=== PATIENT | male | born 1975 | race African-American/Black ===

== ENCOUNTER 2020-11-29 13:17 | Emergency (ER) | payer MEDICAID, OTHER ==
[~2020-11-29] VITALS: Ht 185.4 cm; Wt 114.0 kg
[2020-11-29 13:21] VITALS: BP 141/77
== END 2020-11-29 18:52 | disposition left against medical advice (07) ==
LOC: ER 13:17
DX: Z53.21 Procedure and treatment not carried out due to patient leaving prior to being seen by health care provider (principal)

== ENCOUNTER 2020-12-12 02:49 | Inpatient (IN) | payer MEDICAID, OTHER ==
[~2020-12-12] VITALS: Ht 185.4 cm; Wt 114.8 kg
[2020-12-12] MEDS ORDERED: HYDROCODONE/ACETAMINOPHEN 5/325MG TABLET PO ONE (03:15)
[2020-12-12 03:44] LABS: BASOPHILS % 0.7 % (0.0-2.0); EOSINOPHILS % 2.5 % (0.0-5.0); HEMATOCRIT. 35.6 % (42.0-52.0); HEMOGLOBIN. 11.7 g/dL (14.0-18.0); LYMPHOCYTES % 9.3 % (20.0-50.0); MEAN CORPUSCULAR HEMOGLOBIN 22.6 pg (28.0-32.0); MEAN CORPUSCULAR VOLUME 68.7 fL (80.0-94.0); MEAN PLATELET VOLUME 8.7 fl (7.4-10.4); MONOCYTES % 8.1 % (2.0-8.0); NEUTROPHILS % 79.4 % (40.0-76.0); PLATELET 344 x1000/uL (130-400); RED BLOOD CELL COUNT 5.18 mill/uL (4.7-6.1); RED CELL DISTRIBUTION WIDTH 18.4 % (11.6-14.6)
[2020-12-12 03:48] LABS: CHLORIDE 105 mEq/L (98-107)
[2020-12-12 06:04] LABS: PROTHROMBIN TIME 10.9 sec (9.6-11.0)
[2020-12-12] MEDS ORDERED: VANCOMYCIN 1 G PREMIX 200 ML IV SCH (06:15)
[2020-12-12] MEDS ORDERED: PIPERACILLIN/TAZ 3.375G PREMIX 50 ML IV ONE (06:15)
[2020-12-12] MEDS ORDERED: PIPERACILLIN/TAZOBACTAM 3.375GM/50ML PREMIX IV ONE (06:15)
[2020-12-12 07:00] LABS: PLATELET ESTIMATE NORMAL
[2020-12-12] MEDS ORDERED: DOCUSATE SODIUM 100MG CAPSULE PO PRN (16:00)
[2020-12-12] MEDS ORDERED: LORAZEPAM 0.5MG TABLET PO PRN (16:00)
[2020-12-12] MEDS ORDERED: ONDANSETRON HCL 4MG/2ML INJ IV PRN (16:00)
[2020-12-12] MEDS ORDERED: IPRATROPIUM/ALBUTEROL 0.5-3(2.5)MG/3ML NEB HHN PRN (16:00)
[2020-12-12] MEDS ORDERED: CLONIDINE 0.1MG TABLET PO PRN (16:00)
[2020-12-12] MEDS ORDERED: ACETAMINOPHEN 325MG TABLET PO PRN ×2 (16:00)
[2020-12-12] MEDS ORDERED: PIPERACILLIN/TAZOBACTAM 3.375G in DEXT 5% WATER 50ML IV SCH ×2 (16:30→17:00)
[2020-12-12] MEDS ORDERED: PIPERACILLIN/TAZ 3.375G PREMIX 50 ML IV SCH (16:30)
[2020-12-12] MEDS: ENOXAPARIN 40MG/0.4ML SYR SUBCUT SCH (18:30)
[2020-12-12] MEDS: VANCOMYCIN 1250MG in DEXTROSE 5% WATER 250ML IV SCH (18:52)
[2020-12-13] VITALS (7 sets, daily range): BP systolic 113–148; BP diastolic 57–86
[2020-12-13] MEDS ORDERED: PIPERACILLIN/TAZOBACTAM 3.375G in DEXT 5% WATER 50ML IV SCH
[2020-12-13] MEDS: PIPERACILLIN/TAZOBACTAM 3.375G in DEXT 5% WATER 50ML IV SCH ×4 (00:59→21:09)
[2020-12-13] MEDS ORDERED: FURO20TA4 PO (02:31)
[2020-12-13] MEDS ORDERED: QUET100T34 PO (02:31)
[2020-12-13] MEDS: VANCOMYCIN 1250MG in DEXTROSE 5% WATER 250ML IV SCH ×2 (06:09→18:16)
[2020-12-13 08:04] LABS: CHLORIDE 105 mEq/L (98-107)
[2020-12-13 08:07] LABS: HEMATOCRIT. 35.4 % (42.0-52.0); HEMOGLOBIN. 11.5 g/dL (14.0-18.0); MEAN CORPUSCULAR HEMOGLOBIN 22.2 pg (28.0-32.0); MEAN CORPUSCULAR VOLUME 68.2 fL (80.0-94.0); MEAN PLATELET VOLUME 7.8 fl (7.4-10.4); PLATELET 373 x1000/uL (130-400); RED BLOOD CELL COUNT 5.19 mill/uL (4.7-6.1)
[2020-12-13 13:21] LABS: NUCLEATED RED BLOOD CELLS 1 /100 WBC; PLATELET ESTIMATE NORMAL
[2020-12-13] MEDS ORDERED: [UNRECOGNIZED DRUG - REMARK] XX SCH (17:00)
[2020-12-13] MEDS: ENOXAPARIN 40MG/0.4ML SYR SUBCUT SCH (17:12)
[2020-12-13] MEDS: QUETIAPINE FUMARATE 50MG TABLET PO SCH (17:41)
[2020-12-13] MEDS: HYDROCODONE/ACETAMINOPHEN 5/325MG TABLET PO PRN (17:43)
[2020-12-13] MEDS: IRON SUCROSE COMPLEX 100 MG/5 ML ML IV SCH (21:10)
[2020-12-13 22:34] LABS: *AMPHETAMINES SCREEN URINE PRESUMTIVE POSITIVE (NEGATIVE); CANNABINOID URINE SCREEN NEGATIVE (NEGATIVE); METHADONE URINE SCREEN NEGATIVE (NEGATIVE); OPIATES URINE SCREEN NEGATIVE (NEGATIVE); PHENCYCLIDINE URINE SCREEN NEGATIVE (NEGATIVE)
[2020-12-13 22:35] LABS: *BARBITURATES SCREEN URINE NEGATIVE (NEGATIVE); *BENZODIAZEPINES SCREEN URINE NEGATIVE (NEGATIVE); *COCAINE SCREEN URINE NEGATIVE (NEGATIVE)
[2020-12-14] VITALS: BP 120/70
[2020-12-14 03:29] LABS: HEMATOCRIT. 35.7 % (42.0-52.0); HEMOGLOBIN. 11.6 g/dL (14.0-18.0); MEAN CORPUSCULAR HEMOGLOBIN 22.1 pg (28.0-32.0); MEAN PLATELET VOLUME 7.5 fl (7.4-10.4); PLATELET 377 x1000/uL (130-400); RED BLOOD CELL COUNT 5.25 mill/uL (4.7-6.1); RED CELL DISTRIBUTION WIDTH 18.1 % (11.6-14.6)
[2020-12-14 03:45] LABS: CHLORIDE 108 mEq/L (98-107)
[2020-12-14 04:00] VITALS: BP 126/72
[2020-12-14] MEDS: VANCOMYCIN 1250MG in DEXTROSE 5% WATER 250ML IV SCH (05:13)
[2020-12-14] MEDS: PIPERACILLIN/TAZOBACTAM 3.375G in DEXT 5% WATER 50ML IV SCH ×3 (05:13→21:03)
[2020-12-14 08:00] VITALS: BP 122/67
[2020-12-14] MEDS: QUETIAPINE FUMARATE 50MG TABLET PO SCH ×2 (09:00→09:08)
[2020-12-14 12:00] VITALS: BP 142/67
[2020-12-14] MEDS: VANCOMYCIN 1500MG in DEXTROSE 5% WATER 250ML IV SCH (13:59)
[2020-12-14 16:00] VITALS: BP 115/65
[2020-12-14] MEDS: ENOXAPARIN 40MG/0.4ML SYR SUBCUT SCH (16:51)
[2020-12-14 17:14] LABS: NUCLEATED RED BLOOD CELLS 2 /100 WBC; PLATELET ESTIMATE NORMAL
[2020-12-14] MEDS: HYDROCODONE/ACETAMINOPHEN 5/325MG TABLET PO PRN (18:06)
[2020-12-14 20:00] VITALS: BP 137/83
[2020-12-14] MEDS: IRON SUCROSE COMPLEX 100 MG/5 ML ML IV SCH (20:28)
[2020-12-15] VITALS: BP 126/63
[2020-12-15] MEDS: VANCOMYCIN 1500MG in DEXTROSE 5% WATER 250ML IV SCH ×2 (01:00→13:09)
[2020-12-15 04:00] VITALS: BP 123/54
[2020-12-15] MEDS: PIPERACILLIN/TAZOBACTAM 3.375G in DEXT 5% WATER 50ML IV SCH (05:01)
[2020-12-15] MEDS: QUETIAPINE FUMARATE 50MG TABLET PO SCH (08:16)
[2020-12-15 09:47] LABS: HEMATOCRIT. 40.4 % (42.0-52.0); HEMOGLOBIN. 13.2 g/dL (14.0-18.0); MEAN CORPUSCULAR HEMOGLOBIN 22.5 pg (28.0-32.0); MEAN CORPUSCULAR VOLUME 68.9 fL (80.0-94.0); MEAN PLATELET VOLUME 7.5 fl (7.4-10.4); PLATELET 475 x1000/uL (130-400); RED BLOOD CELL COUNT 5.86 mill/uL (4.7-6.1); RED CELL DISTRIBUTION WIDTH 18.5 % (11.6-14.6)
[2020-12-15 09:51] LABS: CHLORIDE 106 mEq/L (98-107)
[2020-12-15] MEDS ORDERED: UREA227C4 TP (13:51)
[2020-12-15] MEDS ORDERED: QUET100T34 PO (13:51)
[2020-12-15] MEDS ORDERED: FURO20TA4 PO (13:51)
[2020-12-15] MEDS ORDERED: FERR325T6 MT (13:51)
[2020-12-15] MEDS ORDERED: AMOX-424 MT (13:52)
[2020-12-15] MEDS ORDERED: SULF1TAB48 MT (13:52)
[2020-12-15 14:44] VITALS: BP 140/76
[2020-12-15 19:39] LABS: PLATELET ESTIMATE INCREASED
[2020-12-15] MEDS ORDERED: ENOXAPARIN 30MG/0.3ML SYR SUBCUT SCH (21:00)
== END 2020-12-15 16:20 | disposition home or self-care (01) | DRG 720 ==
LOC: ER 02:49 → MICUSO 13:13 → 7EST 22:07
PROVIDERS: ADMIT Internal Medicine; ATTEND Internal Medicine
DX: A41.9 Sepsis, unspecified organism (principal); L03.115 Cellulitis of right lower limb; D50.9 Iron deficiency anemia, unspecified; D72.821 Monocytosis (symptomatic); F15.90 Other stimulant use, unspecified, uncomplicated; I10 Essential (primary) hypertension; L03.116 Cellulitis of left lower limb; L28.0 Lichen simplex chronicus; R40.0 Somnolence; Z59.00 Homelessness unspecified; Z71.51 Drug abuse counseling and surveillance of drug abuser
CPT/HCPCS: 36415; 71045; 80048; 80061; 80202; 80305; 82728; 83036; 83540; 83550; 84145; 84443; 84484; 85025; 93005; 93306; 93971; 99285; J1650; J2543; J3370; J7040; J7060

== ENCOUNTER 2021-04-25 23:19 | Emergency (ER) | payer OTHER ==
[~2021-04-25] VITALS: Ht 182.9 cm; Wt 94.0 kg
[~2021-04-25 23:19] MED LIST: AMOX-424 MT; FERR325T6 MT; FURO20TA4 PO; QUET100T34 PO; SULF1TAB48 MT; UREA227C4 TP
[2021-04-26 01:36] LABS: HEMATOCRIT. 31.5 % (42.0-52.0); HEMOGLOBIN. 10.7 g/dL (14.0-18.0); MEAN CORPUSCULAR HEMOGLOBIN 22.8 pg (28.0-32.0); MEAN CORPUSCULAR VOLUME 67.1 fL (80.0-94.0); MEAN PLATELET VOLUME 7.3 fl (7.4-10.4); PLATELET 362 x1000/uL (130-400); RED BLOOD CELL COUNT 4.69 mill/uL (4.7-6.1); RED CELL DISTRIBUTION WIDTH 19.6 % (11.6-14.6)
[2021-04-26 01:44] LABS: CHLORIDE 107 mEq/L (98-107)
[2021-04-26 01:49] LABS: ETHANOL BLOOD < 10 mg/dL
[2021-04-26 03:51] LABS: *AMPHETAMINES SCREEN URINE PRESUMTIVE POSITIVE (NEGATIVE); *BARBITURATES SCREEN URINE NEGATIVE (NEGATIVE); *BENZODIAZEPINES SCREEN URINE NEGATIVE (NEGATIVE); *COCAINE SCREEN URINE NEGATIVE (NEGATIVE); METHADONE URINE SCREEN NEGATIVE (NEGATIVE); OPIATES URINE SCREEN NEGATIVE (NEGATIVE)
[2021-04-26 03:52] LABS: CANNABINOID URINE SCREEN NEGATIVE (NEGATIVE); PHENCYCLIDINE URINE SCREEN NEGATIVE (NEGATIVE)
[2021-04-26] MEDS ORDERED: FURO-151 MT (04:03)
[2021-04-26] MEDS ORDERED: IBUP-2028 MT (04:03)
[2021-04-26 04:47] LABS: NUCLEATED RED BLOOD CELLS 1 /100 WBC; PLATELET ESTIMATE NORMAL
[2021-04-26 05:00] VITALS: BP 128/69
== END 2021-04-26 05:06 | disposition home or self-care (01) ==
LOC: ER 23:19
DX: R60.0 Localized edema (principal); R26.2 Difficulty in walking, not elsewhere classified; J45.909 Unspecified asthma, uncomplicated
CPT/HCPCS: 36415; 71045; 80053; 80305; 80320; 83880; 84484; 85025; 85379; 93970; 99285; G0480

== ENCOUNTER 2022-05-01 04:05 | Emergency (ER) | payer OTHER ==
[~2022-05-01] VITALS: Ht 175.3 cm; Wt 114.0 kg
[~2022-05-01 04:05] MED LIST changes: +FURO-151 MT; +IBUP-2028 MT
[2022-05-01] MEDS ORDERED: ACETAMINOPHEN 325MG TABLET PO ONE (06:15)
[2022-05-01 07:14] VITALS: BP 164/78
[2022-05-01 09:39] LABS: CHLORIDE 108 mEq/L (98-107); HEMATOCRIT. 35.7 % (42.0-52.0); HEMOGLOBIN. 11.6 g/dL (14.0-18.0); MEAN CORPUSCULAR HEMOGLOBIN 21.9 pg (28.0-32.0); MEAN CORPUSCULAR VOLUME 67.7 fL (80.0-94.0); MEAN PLATELET VOLUME 7.7 fl (7.4-10.4); PLATELET 382 x1000/uL (130-400); RED BLOOD CELL COUNT 5.27 mill/uL (4.7-6.1)
[2022-05-01] MEDS ORDERED: ACETAMINOPHEN 500MG TABLET PO NR (10:30)
[2022-05-01 12:55] LABS: NUCLEATED RED BLOOD CELLS 1 /100 WBC; PLATELET ESTIMATE NORMAL
[2022-05-01] MEDS ORDERED: LISI10TA26 MT (13:38)
[2022-05-01] MEDS ORDERED: FURO-151 MT (13:38)
== END 2022-05-01 14:05 | disposition home or self-care (01) ==
LOC: ER 04:05
DX: M25.561 Pain in right knee (principal); M25.562 Pain in left knee; J45.909 Unspecified asthma, uncomplicated; I50.9 Heart failure, unspecified; Z79.899 Other long term (current) drug therapy
CPT/HCPCS: 36415; 73560; 73600; 80053; 85025; 99284